=== PATIENT | male | born 1995 | race Two or more races ===

== ENCOUNTER 2016-10-21 15:57 | Emergency (ER) | payer MEDICAID ==
--- NOTE | 2016-10-21 17:11 | ED Physician Documentation ---
PD HPI LOWER EXT INJURY - Stated complaint Stated Complaint: L KNEE INJ - Chief complaint Chief Complaint: Ext Problem - History obtained from History obtained from: Patient - History of Present Illness PD HPI LOW EXT INJURY LOCATION: Left, Knee Type of injury: Other (vertical load, was jumping on trampoline and bounced off the trampoline and landed feet first, with pain in anterior knee. It has been hurting to bend and stand, with some fluid in joint. Has feeling of clicking at ties and knee has given out when walked.). No: Fall Timing - onset: How many days ago (a week ago) Timing - duration: Weeks (1) Timing - details: Abrupt onset, Still present Improved by: Rest Worsened by: Moving, Palpating, Other (walking) Review of Systems Constitutional: denies: Fever, Chills Skin: denies: Rash, Abrasion (s), Laceration (s) Neurologic: reports: Syncope Immunocompromised: denies: Immunocompromised PD PAST MEDICAL HISTORY - Past Medical History Past Medical History: No Cardiovascular: None Respiratory: None Neuro: None Musculoskeletal: Other (same knee injury couple years ago with MCL, ACL and cartilage injury, healed without surgery and had essentially normal knee usage with stiffness at times. ) - Past Surgical History Past Surgical History: No - Present Medications Home Medications: Ambulatory Orders Medication Instructions Recorded Confirmed Naproxen [Naprosyn] 500 mg PO BID #20 tablet 10/21/16 - Allergies Allergies/Adverse Reactions: Allergies Allergy/AdvReac Type Severity Reaction Status Date / Time No Known Drug Allergies Allergy Verified 10/21/16 17:56 - Social History Does the pt smoke?: Yes Smoking Status: Current every day smoker Does the pt drink ETOH?: No Does the pt have substance abuse?: Yes Substance Use and Type: Marijuana PD ED PE NORMAL - Vitals Vital signs reviewed: Yes - General General: Alert and oriented X 3, No acute distress, Well developed/nourished - Derm Derm: Normal color, Warm and dry - Extremities Extremities: Other (mild effusion. Drawer without pain nor laxity. Collateral stress without pain nor laxity. Some tenderness anterior knee muscles. Meniscal stress (Apley-like) causes pain and there is some crepitance feeling. Seems c/w meniscal injury. No calf tenderness. ) Results - Vitals Vitals: Vital Signs - 24 hr 10/21/16 10/21/16 16:00 18:24 Temperature 36.5 C 37.1 C Heart Rate 75 68 Respiratory 18 18 Rate Blood Pressure 144/71 H 142/85 H O2 Saturation 99 99 Oxygen O2 Source Room air - Rads (name of study) left knee Radiology: Prelim report reviewed, EMP read contemporaneously (effusion. Small chip fracture representing ACL disruption. Will give knee brace and have follwiup with Ortho. ) PD MEDICAL DECISION MAKING - ED course Complexity details: reviewed results, considered differential (exam feels c/w meniscal injury. ACL felt intact actually. MCL pain with stress but no overt laxity. There is mild effusion. ), d/w patient Departure - Departure Disposition: 01 Home, Self Care Clinical Impression: Acute meniscal injury of left knee Qualifiers: Encounter type: initial encounter Qualified Code(s): S83.8X2A - Sprain of other specified parts of left knee, initial encounter Injury of ligament of knee Qualifiers: Encounter type: initial encounter Laterality: left Qualified Code(s): S89.92XA - Unspecified injury of left lower leg, initial encounter Condition: Stable Record reviewed to determine appropriate education?: Yes Instructions: ED Meniscal Injury Knee Poss, ED Sprain Knee Follow-Up: Pritesh Gardner MD [Provider Admit Priv/Credential] - Prescriptions: Naproxen [Naprosyn] 500 mg PO BID #20 tablet Comments: Knee brace when up and around. Can keep it on when rested too. Naproxen twice daily. Add Tylenol as needed for pains. Follow up with Ortho in about a week, call tomorrow for an appt. Discharge Date/Time: 10/21/16 18:27
[2016-10-21] MEDS ORDERED: IBUPROFEN 600 MG TABLET PO STA (17:30)
--- NOTE | 2016-10-21 17:35 | XRAY Preliminary Report ---
Exam: XR Knee 4 View LT IMPRESSION: 1. Moderate joint effusion. 2. No acute bony abnormality. 3. Central anterior flake fracture, most likely old due to disruption of the tibial insertion ACL as noted previously. 4. Persistent or recurrent edema medial collateral ligament complex. [facility] SITE ID: [id number]
[2016-10-21] MEDS ORDERED: IBUPROFEN 800 MG TABLET PO ONE (17:54)
--- NOTE | 2016-10-21 17:54 | XRAY Report ---
EXAM: LEFT KNEE RADIOGRAPHY EXAM DATE: 10/21/2016 04:33 PM. CLINICAL HISTORY: Medial knee pain since an injury 2 weeks ago on the trampoline, patient felt a "pop " at the time of the injury. COMPARISON: MRI left knee 03/11/2016. TECHNIQUE: 4 views. FINDINGS: Bones: 2 x 7 mm avulsion fracture central knee joint, consistent with an old avulsion fracture anteri or insertion ACL tear. The rest of the trabecular and cortical patterns are intact. Joints: Moderate joint effusion. Previously, small joint effusion. 12 x 5 mm dystrophic calcification within the superior edematous medial collateral ligament. This was evident previously. Bones in yamila omic alignment. Soft Tissues: Normal. No soft tissue swelling. IMPRESSION: 1. Moderate joint effusion. 2. No acute bony abnormality. 3. Central joint anterior loose body, consistent with a flake fracture, most likely old due to disrup tion of the tibial insertion ACL as noted previously. 4. Persistent or recurrent edema medial collateral ligament complex. [facility] Referring Provider Line: [phone] SITE ID: [id number]
[2016-10-21] MEDS ORDERED: IBUPROFEN 600 MG TABLET PO ONE (17:55)
[2016-10-21 18:24] VITALS: BP 142/85
== END 2016-10-21 18:27 | disposition home or self-care (01) ==
LOC: ED 15:57
DX: S83.8X2A Sprain of other specified parts of left knee, initial encounter (principal); X50.1XXA Overexertion from prolonged static or awkward postures, initial encounter; Y93.44 Activity, trampolining; F17.200 Nicotine dependence, unspecified, uncomplicated
CPT/HCPCS: 73564; 99283; A9270

== ENCOUNTER 2017-01-09 14:58 | Outpatient (CLI) | payer MEDICAID | END 2017-01-09 14:59 | disposition home or self-care (01) | DX: Z11.3 Encounter for screening for infections with a predominantly sexual mode of transmission (principal) ==

== ENCOUNTER 2017-02-18 13:30 | Outpatient (CLI) | payer MEDICAID ==
[2017-02-20 14:37] LABS: TEST RESULT REPORT (())
== END 2017-02-18 13:31 | disposition home or self-care (01) ==
LOC: LAB.R 13:30
PROVIDERS: ATTEND Physician Assistant
DX: Z11.3 Encounter for screening for infections with a predominantly sexual mode of transmission (principal)
CPT/HCPCS: 81599; 87255

== ENCOUNTER 2017-02-21 14:40 | Outpatient (CLI) | payer MEDICAID ==
[2017-02-26 00:01] LABS: HSV 1/2 IGM INDEX <0.90 INDEX (()); HSV 2 IGG INDEX <0.90 INDEX (())
== END 2017-02-21 14:41 | disposition home or self-care (01) ==
LOC: LAB.N 14:40
PROVIDERS: ATTEND Physician Assistant
DX: A60.00 Herpesviral infection of urogenital system, unspecified (principal)
CPT/HCPCS: 36415; 86694; 86695; 86696